=== PATIENT | female | born 1945 | race Caucasian/White ===

== ENCOUNTER → 2016-11-10 | Outpatient (CLI) | payer MEDICARE | END | disposition home or self-care (01) | LOC: PCVCIMAG 13:49 | PROVIDERS: ATTEND Internal Medicine | DX: I42.8 Other cardiomyopathies (principal); I50.9 Heart failure, unspecified; E78.00 Pure hypercholesterolemia, unspecified; E11.9 Type 2 diabetes mellitus without complications; I77.9 Disorder of arteries and arterioles, unspecified; G47.30 Sleep apnea, unspecified | CPT/HCPCS: 93306; G0463 ==

== ENCOUNTER → 2017-02-20 | Outpatient (CLI) | payer MEDICARE | END | disposition home or self-care (01) | LOC: PCVCCLINIC 10:17 | PROVIDERS: ATTEND Internal Medicine | DX: I42.9 Cardiomyopathy, unspecified (principal); I50.9 Heart failure, unspecified; E78.00 Pure hypercholesterolemia, unspecified; E11.9 Type 2 diabetes mellitus without complications; I77.9 Disorder of arteries and arterioles, unspecified; G47.30 Sleep apnea, unspecified; C53.0 Malignant neoplasm of endocervix; Z95.810 Presence of automatic (implantable) cardiac defibrillator; Z79.899 Other long term (current) drug therapy | CPT/HCPCS: 93005; G0463 ==

== ENCOUNTER → 2017-04-07 | Outpatient (CLI) | payer MEDICARE | END | disposition home or self-care (01) | LOC: PCVCCLINIC 14:27 | PROVIDERS: ATTEND Internal Medicine | DX: I50.22 Chronic systolic (congestive) heart failure (principal); E11.9 Type 2 diabetes mellitus without complications; E78.5 Hyperlipidemia, unspecified; G47.33 Obstructive sleep apnea (adult) (pediatric); C53.0 Malignant neoplasm of endocervix; I25.10 Atherosclerotic heart disease of native coronary artery without angina pectoris; I42.9 Cardiomyopathy, unspecified; Z95.810 Presence of automatic (implantable) cardiac defibrillator; E78.00 Pure hypercholesterolemia, unspecified; Z90.710 Acquired absence of both cervix and uterus; Z79.899 Other long term (current) drug therapy | CPT/HCPCS: 80061; G0463 ==

== ENCOUNTER → 2017-10-08 | Outpatient (CLI) | payer MEDICARE | END | disposition home or self-care (01) | LOC: PCVCCLINIC 11:17 | DX: I42.8 Other cardiomyopathies (principal); I50.22 Chronic systolic (congestive) heart failure; E78.5 Hyperlipidemia, unspecified; C53.0 Malignant neoplasm of endocervix; E11.9 Type 2 diabetes mellitus without complications; G47.33 Obstructive sleep apnea (adult) (pediatric); R94.31 Abnormal electrocardiogram [ECG] [EKG]; Z95.810 Presence of automatic (implantable) cardiac defibrillator; Z79.899 Other long term (current) drug therapy | CPT/HCPCS: 80061; 93005; G0463 ==

== ENCOUNTER → 2018-04-19 | Outpatient (CLI) | payer MEDICARE | END | disposition home or self-care (01) | LOC: PCVCCLINIC 14:47 | PROVIDERS: ATTEND Internal Medicine | DX: I42.8 Other cardiomyopathies (principal); I50.22 Chronic systolic (congestive) heart failure; E78.5 Hyperlipidemia, unspecified; E11.9 Type 2 diabetes mellitus without complications; C53.0 Malignant neoplasm of endocervix; G47.33 Obstructive sleep apnea (adult) (pediatric); Z95.810 Presence of automatic (implantable) cardiac defibrillator; Z79.899 Other long term (current) drug therapy | CPT/HCPCS: 80061; 93279; G0463 ==

== ENCOUNTER → 2018-11-09 | Outpatient (CLI) | payer MEDICARE ==
--- NOTE | 2018-11-09 10:20 | PCVCIMAG ---
APPROVED REPORT Study performed: 11/09/2018 09:24:04 EXAM: Comprehensive 2D, Doppler, and color-flow Echocardiogram Patient Location: Echo lab Status: routine BSA: 1.63 HR: 85 bpm Rhythm: NSR Other Information Study Quality: Good Risk Factors: Cardiac Risk Factors: DM Indications Cardiomyopathy AICD, [place] 2D Dimensions IVSd: 3.11 (7-11mm)LVOT Diam: 18.73 (18-24mm) LVDd: 55.71 mm PWd: 5.24 (7-11mm)Ascending Ao: 26.41 (22-36mm) LVDs: 51.09 (25-40mm) Left Atrium: 33.52 (27-40mm) Aortic Root: 21.75 mm LV Single Plane 4CH: 31.05 % LV Single Plane 2CH: 30.85 % Biplane EF: 30.8 % Volumes Left Atrial Volume (Systole) Single Plane 4CH: 40.82 mLSingle Plane 2CH: 67.21 mL LA ESV Index: 33.00 mL/m2 Aortic Valve AoV Peak Martin.: 1.24 m/s AO Peak Gr.: 6.16 mmHgLVOT Max P.43 mmHg LVOT Max V: 0.60 m/s MICHELLE Vmax: 1.33 cm2 Mitral Valve E/A Ratio: 1.1 MV Decel. Time: 135.04 ms MV E Max Martin.: 1.23 m/s MV A Martin.: 1.13 m/s TDI E/Lateral E': 20.50E/Medial E': 17.57 Medial E' Martin.: 0.07 m/s Lateral E' Martin.: 0.06 m/s Pulmonary Valve PV Peak Gr.: 1.70 mmHg Pulmonary Vein P Vein S: 0.41 m/sP Vein A: 0.34 m/s P Vein D: 0.27 m/sP Vein A Dur.: 72.7 msec P Vein S/D Ratio: 1.52 Tricuspid Valve TR Peak Martin.: 2.98 m/s TR Peak Gr.: 35.48 mmHg Left Ventricle Left ventricle is mildly dilated. There is global hypokinesis of the left ventricle. There is normal left ventricular wall thickness. Left ventricular systolic function is severely decreased. LVEF is 30%. Moderate diastolic dysfunction is present (pseudonormal filling). Right Ventricle The right ventricle is normal size. The right ventricular systolic function is normal. Device lead is present in the right ventricle. Atria The left atrium size is normal. Pacemaker lead is present in the right atrium. Aortic Valve The aortic valve is normal in structure. No aortic regurgitation is present. There is no aortic valvular stenosis. Mitral Valve The mitral valve is normal in structure. Mild to moderate mitral regurgitation. No evidence of mitral valve stenosis. Tricuspid Valve The tricuspid valve is normal in structure. Trace tricuspid regurgitation. Pulmonary artery pressure is 33mmHg. Pulmonic Valve The pulmonary valve is normal in structure. Trace pulmonic regurgitation. Great Vessels The aortic root is normal in size. IVC is normal in size and collapses >50% with inspiration. Pericardium There is no pericardial effusion. <Conclusion> Left ventricular systolic function is severely decreased. LVEF is 30%. Moderate diastolic dysfunction The aortic valve is normal in structure. No aortic regurgitation or stenosis The mitral valve is normal in structure. Mild to moderate mitral regurgitation. Trace tricuspid regurgitation. Pulmonary artery pressure or 33mmHg. There is no pericardial effusion.
== END | disposition home or self-care (01) ==
LOC: PCVCIMAG 12:08
PROVIDERS: ATTEND Internal Medicine
DX: I34.0 Nonrheumatic mitral (valve) insufficiency (principal); I42.8 Other cardiomyopathies; I50.22 Chronic systolic (congestive) heart failure; E78.5 Hyperlipidemia, unspecified; C53.0 Malignant neoplasm of endocervix; E11.9 Type 2 diabetes mellitus without complications; G47.33 Obstructive sleep apnea (adult) (pediatric); R06.02 Shortness of breath; Z95.810 Presence of automatic (implantable) cardiac defibrillator
CPT/HCPCS: 36415; 80061; 93005; 93306; G0463

== ENCOUNTER → 2019-05-13 | Outpatient (CLI) | payer MEDICARE | END | disposition home or self-care (01) | LOC: PCVCCLINIC 09:40 | PROVIDERS: ATTEND Internal Medicine | DX: Z48.812 Encounter for surgical aftercare following surgery on the circulatory system (principal); I42.9 Cardiomyopathy, unspecified; I50.9 Heart failure, unspecified; Z95.810 Presence of automatic (implantable) cardiac defibrillator | CPT/HCPCS: 93282 ==

== ENCOUNTER → 2019-05-19 | Outpatient (CLI) | payer MEDICARE ==
[~2019-05-19] MED LIST: REGADENOSON 0.4 MG/5 ML DISP.SYRIN. IV ONE
--- NOTE | 2019-05-19 12:02 | PCVCIMAG ---
APPROVED REPORT Imaging Protocol: Rest Tc-99m/Stress Tc-99m 1 day Study performed: 05/19/2019 09:31:23 Indication: Dyspnea, Severe ICM Patient Location: Out-Patient Stress Nurse: Matilde Forde RN, Leatha Kirby RN ME Tech:OZZY Fofana Ht: 5 ft 0 in Wt: 150 lbs BSA: 1.65 m2 HR: 85 bpm BP: 136/68 mmHg BMI: 29.2 Medical History Medical History: Age, Hyperlipidemia, CVD, DM, CHF, Sleep Apnea, CAD, past Chemo treatments Medications: Albuterol, Coreg, Entresto, Pravastatin Allergies: NKA Pretest Chest Pain Characteristics: No chest pain Exercise History: Physically active Meds Held (24 hrs): Coreg Resting Data Rest SPECT myocardial perfusion imaging was performed in supine position 45 minutes following the intravenous injection of 10.9 mCi of Tc-99m Sestamibi. Time of rest injection: 0840 Date: 05/19/2019 Administration Route: IV Administration Site: Right AC Pharmacologic Stress Pharmacologic stress test was performed by injecting Regadenoson 0.4 mg IV push over 10-15 seconds immediately followed by the intravenous injection of 32.9 mCi of Tc-99m Sestamibi. Time of stress injection: 1000 Date: 05/19/2019 Administration Route: IV Administration Site: Right AC Gated Stress SPECT was performed 45 minutes after stress injection. The images were gated to evaluate regional wall motion and calculate left ventricular ejection fraction. Stress Test Details Stress Test: Pharmacologic stress testing performed using 0.4 mg of regadenoson per 5 mL given IV over 10 seconds. Reason for pharmacologic stress test: ICD, physical limitations. HRMax Heart Rate (APMHR): 149 bpm Resting HR: 85 bpmTarget HR (85% APMHR): 126 bpm Max HR Achieved: 112 bpm % of APMHR: 75 Recovery HR: 98 bpm BP Resting BP: 136/68 mmHg Max BP: 133/65 mmHg Recovery BP: 142/65 mmHg ECG Resting ECG: Sinus Rhythm Stress ECG: Sinus Tachycardia, nonspecific ST-T abnormalities ST Change: None Maximum ST Deviation: 0 mm Arrhythmia: VPC's Recovery ECG: Sinus Rhythm, nonspecific ST-T abnormalities Recovery ST Change: Non-ischemic Recovery ST Deviation: 0 mm Clinical Reason for Termination: Completed protocol Stress Symptoms: Dyspnea, Chest Pressure Exercise duration: min 55 sec Symptoms resolved with caffeine. Stress ECG Conclusion ECG: Non-ischemic Clinical: Non-ischemic Study Quality Study: Good Study Data Post stress, the left ventricular ejection was 32%.. SSS: 5 SRS: 3 SDS: 3 TID = 0.77. Perfusion No evidence of stress induced ischemia. There is a medium area of mildly reduced uptake in the basal and mid segment of the anteroseptal and inferoseptal pitt which is seen on the stress images as well as the resting images. Wall Motion Global hypokinesis. Nuclear Conclusion No evidence of stress induced ischemia. There is a medium area of mildly reduced uptake in the basal and mid segment of the anteroseptal and inferoseptal pitt which is seen on the stress images as well as the resting images. Post stress, the left ventricular ejection was 32%. Findings similar to June 2016. Interpreted by: Usman Erickson MD Electronically Approved: 05/19/2019 11:45:06 <Conclusion> ECG: Non-ischemic Clinical: Non-ischemic
== END | disposition home or self-care (01) ==
LOC: PCVCIMAG 08:24
PROVIDERS: ATTEND Internal Medicine
DX: R00.0 Tachycardia, unspecified (principal); E78.5 Hyperlipidemia, unspecified; E11.9 Type 2 diabetes mellitus without complications
CPT/HCPCS: 78452; 93017; A9500; G0463; J2785